=== PATIENT | female | born 1980 | race Caucasian/White ===

== ENCOUNTER → 2017-11-17 | Outpatient (CLI) | payer BC ==
--- NOTE | 2017-11-17 10:56 | Diagnostic Imaging Report ---
PROCEDURE:LIMITED ABDOMINAL ULTRASOUND COMPARISON:None. INDICATIONS:MID BACK PAIN FINDINGS: Liver: 14.9 cm. Increased hepatic parenchymal echogenicity. No focal mass. Main portal vein: 1.1 cm. Hepatopedal flow. Gallbladder: No echogenic calculi, gallbladder wall thickening, or pericholecystic fluid. Common Bile Duct: 2.5 mm. No echogenic filling defect. Sonographic Hayes's sign: Negative. Right kidney: 11.2 cm. No solid or cystic mass, echogenic calculi, or hydronephrosis. Normal parenchymal echogenicity. Pancreas: The pancreas was insufficiently visualized for comment secondary to overlying bowel gas. Inferior vena cava: Normal. Aorta: Normal. Ascites: None. CONCLUSION: 1. No acute sonographic abnormality. 2. Hepatic steatosis. Dictated by: Vinay Smith M.D. on 11/17/2017 at 11:05 Electronically approved by: Vinay Smith M.D. on 11/17/2017 at 11:05
== END ==
LOC: US 09:35
PROVIDERS: ATTEND Family Medicine
DX: M54.9 Dorsalgia, unspecified (principal)
CPT/HCPCS: 76705